=== PATIENT | female | born 1955 | race Caucasian/White ===

== ENCOUNTER 2019-03-01 17:02 | Emergency (ER) | payer OTHER, MEDICARE ==
[~2019-03-01] VITALS: Ht 162.6 cm; Wt 56.0 kg
[~2019-03-01 17:02] MED LIST: GABA300C PO; HYDR-3653 PO
--- NOTE | 2019-03-01 17:27 | NUR ---
Pt to Trauma 1 from lobby
--- NOTE | 2019-03-01 18:08 | NUR ---
PT SITTING UP AT EDGE OF BED, MOVES INDEPENDENTLY FOR COMFORT. PT MAKES JOKES WITH FRIEND, WHO IS AT THE BEDSIDE. C/O MIDLINE UPPER AND LOWER BACK PAIN, ACUTE ON CHRONIC. FX X1 YEAR AGO, INCREASED PAIN DUE TO MOVING BOXES AROUND. SIDE RAIL UP, CALL LIGHT IN REACH. AWAITING SRINATH THAO.
[2019-03-01] MEDS ORDERED: HYDROcodone/APAP 5/325 TABLET PO ONE (18:30)
[2019-03-01] MEDS ORDERED: HYDROcodone/APAP 5/325 TABLET ONE (18:47)
--- NOTE | 2019-03-01 18:52 | NUR ---
PT RETURNED FROM IMAGING, NAD NOTED AT THIS TIME. PT REPORTS SLIGHT INCREASE IN PAIN FOLLOWING XRAY. PLEASANT WITH FRIEND, WHO IS AT THE BEDSIDE. RESPIRATIONS EVEN AND UNLABORED ON RA. AWAITING IMAGING RESULTS.
--- NOTE | 2019-03-01 19:20 | NUR ---
PT UP FOR RECHECK.
--- NOTE | 2019-03-01 19:41 | NUR ---
PT AMBULATES WELL INDEPENDENTLY TO BATHROOM. NAD NOTED AT THIS TIME.
--- NOTE | 2019-03-01 20:46 | NUR ---
PT AWARE THAT ERMD CALLING SPINE MD REGARDING HER IMAGES. NAD NOTED AT THIS TIME. PT FULLY DRESSED, HOPING TO GO HOME.
[2019-03-01 21:28] VITALS: BP 141/85
== END 2019-03-01 21:31 | disposition home or self-care (01) ==
LOC: ED 21:25
DX: S22.059A Unspecified fracture of T5-T6 vertebra, initial encounter for closed fracture (principal); S32.019A Unspecified fracture of first lumbar vertebra, initial encounter for closed fracture; X58.XXXA Exposure to other specified factors, initial encounter; Y93.89 Activity, other specified; Y92.89 Other specified places as the place of occurrence of the external cause; Y99.8 Other external cause status
CPT/HCPCS: 72072; 72110; 99283